=== PATIENT | female | born 1960 | race Caucasian/White ===

== ENCOUNTER → 2017-12-27 | Day surgery (SDC) | payer OTHER ==
--- NOTE | 2017-12-28 11:36 | PATH ---
Surgical Pathology Report Patient Name: PILO LUNDY [facility]. Rec. #: [id number] /Age/Gender: 1960 (Age: 57) / F Account: [id number] Location: [facility] Taken: 12/27/2017 Received: 12/27/2017 Reported: 12/28/2017 Physicians: Aubrie Benton M.D. Specimen(s) Received LEFT AT 9:00 BREAST CORE BIOPSY Clinical History Nonpalpable lesion Ultrasound findings: Probably benign Final Diagnosis LEFT BREAST, 9:00, ULTRASOUND GUIDED NEEDLE BIOPSY: BENIGN FIBROFATTY TISSUE WITH FOCAL FAT NECROSIS. Comment: Recommend correlation with clinical and radiologic findings and follow up as clinically indicated. Electronically Signed Bhaskar Navarro M.D. Gross Description Received in formalin labeled "left 9:00," are 8 noonan-yellow, cylindrical portions of fibroadipose tissue ranging from 0.3-1.7 cm in length and averaging 0.1 cm in diameter. The specimens are submitted in toto in one cassette. Total formalin fixation time: Between 9-15 hours 12/27/201712/27/2017
== END | disposition home or self-care (01) ==
LOC: JRADUS-SUR 07:44
PROVIDERS: ATTEND Surgery
PROC: 0HBU3ZX Excision of Left Breast, Percutaneous Approach, Diagnostic (ICD-10-PCS; principal; 2017-12-27)
DX: D24.2 Benign neoplasm of left breast (principal)
CPT/HCPCS: 19083; 87899; 88305-TC; A4648